=== PATIENT | male | born 1990 | race Two or more races ===

== ENCOUNTER 2020-06-20 19:58 | Emergency (ER) | payer OTHER ==
[~2020-06-20] VITALS: Ht 180.3 cm; Wt 124.5 kg
[2020-06-20 20:00] VITALS: BP 153/85
[2020-06-20] MEDS ORDERED: LIDOCAINE-MPF 1%, 5ML ONE (20:20)
[2020-06-20] MEDS ORDERED: LIDOCAINE-MPF 1%, 5ML INFIL ONE (20:30)
--- NOTE | 2020-06-20 20:43 | NUR ---
PT HAD LAC TO LEFT THUMB AT CREASE. LAC SUTURED AND EDGES WELL APPROXIMATED AND NO MORE BLEEDING. DRESSING PLACED AND INTACT. PT TOLERATED WELL.
[2020-06-20] MEDS ORDERED: NEOSPORIN OINT. PKT 1 PACKET ONE (20:52)
--- NOTE | 2020-06-20 21:33 | NUR ---
F/U AND D/C INSTRUCTIONS GIVEN TO PT AND HE V/U. LEFT THUMB DRESSED AND HAS A SPLINT ON IT. CMS INTACT.
== END 2020-06-20 21:37 | disposition home or self-care (01) ==
LOC: ED 20:28
DX: S61.012A Laceration without foreign body of left thumb without damage to nail, initial encounter (principal); X58.XXXA Exposure to other specified factors, initial encounter; Y93.89 Activity, other specified; Y92.89 Other specified places as the place of occurrence of the external cause; Y99.8 Other external cause status
CPT/HCPCS: 12042; 99284

== ENCOUNTER 2020-06-30 13:54 | Emergency (ER) | payer OTHER ==
[~2020-06-30] VITALS: Ht 180.3 cm; Wt 120.4 kg
[2020-06-30 13:59] VITALS: BP 156/106
== END 2020-06-30 14:33 | disposition home or self-care (01) ==
LOC: ED 14:20
DX: S61.012D Laceration without foreign body of left thumb without damage to nail, subsequent encounter (principal); X58.XXXD Exposure to other specified factors, subsequent encounter
CPT/HCPCS: 99281

== ENCOUNTER 2020-08-12 18:13 | Emergency (ER) | payer OTHER ==
[~2020-08-12] VITALS: Ht 180.3 cm; Wt 124.1 kg
[2020-08-12 18:21] VITALS: BP 156/103
[2020-08-12] MEDS ORDERED: LIDOCAINE-MPF 1%, 5ML INFIL ONE (18:30)
[2020-08-12] MEDS ORDERED: DIPH,PERTUSS(ACELL),TET VAC/PF 0.5 ML IM-VACC ONE (18:30)
--- NOTE | 2020-08-12 20:56 | NUR ---
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 Patient not in lobby at this time.
--- NOTE | 2020-08-12 21:16 | NUR ---
[employer]: called for patient. Pt not in lobby at this time for 2nd attempt.
--- NOTE | 2020-08-12 21:45 | NUR ---
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 Pt not in lobby for 3rd attempt.
== END 2020-08-12 21:49 | disposition left against medical advice (07) ==
LOC: ED 18:30
DX: S61.012A Laceration without foreign body of left thumb without damage to nail, initial encounter (principal); W26.0XXA Contact with knife, initial encounter; Y93.89 Activity, other specified; Y92.89 Other specified places as the place of occurrence of the external cause; Y99.8 Other external cause status
CPT/HCPCS: 99281

== ENCOUNTER 2020-08-13 09:19 | Emergency (ER) | payer OTHER ==
[~2020-08-13] VITALS: Ht 180.3 cm; Wt 125.1 kg
[2020-08-13 09:32] VITALS: BP 163/117
[2020-08-13] MEDS ORDERED: DIPH,PERTUSS(ACELL),TET VAC/PF 0.5 ML IM-VACC ONE ×2 (10:00→12:07)
--- NOTE | 2020-08-13 10:49 | NUR ---
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
[2020-08-13] MEDS ORDERED: LIDOCAINE-MPF 1%, 5ML ONE (11:25)
[2020-08-13] MEDS ORDERED: NEOSPORIN OINT. PKT 1 PACKET ONE (11:32)
[2020-08-13] MEDS ORDERED: LIDOCAINE 1%, 10ML INFIL ONE (12:00)
== END 2020-08-13 12:24 | disposition home or self-care (01) ==
LOC: ED 11:54
DX: S61.012A Laceration without foreign body of left thumb without damage to nail, initial encounter (principal); W26.0XXA Contact with knife, initial encounter; Y93.89 Activity, other specified; Y92.69 Other specified industrial and construction area as the place of occurrence of the external cause; Y99.0 Civilian activity done for income or pay
CPT/HCPCS: 12041; 90471; 90715; 99284; J3490

== ENCOUNTER 2020-10-08 08:17 | Emergency (ER) | payer SELFPAY ==
[~2020-10-08] VITALS: Ht 180.3 cm; Wt 117.0 kg
--- NOTE | 2020-10-08 09:04 | NUR ---
PT IN GOWN IN [facility] WITH ERP AT BS. PT ATTACHED TO ALL VS MONITORS. VSS. PT EDUCATED ON ER PROCESS AND VERBALIZES UNDERSTANDING. PT HAS CALL LIGHT WITHIN REACH; AWAITING ORDERS AT THIS TIME.
[2020-10-08 09:20] LABS: MICROSCOPIC NOT IND
[2020-10-08 09:21] LABS: BASOPHILS % (AUTO) 1 % (0-1); EOSINOPHILS % (AUTO) 1 % (1-7); LYMPHOCYTES % (AUTO) 15 % (22-44); MEAN CORPUSCULAR HEMOGLOBIN 31.4 pg (27.5-34.5); MEAN CORPUSCULAR HGB CONC 34.9 g/dL (33.2-36.2); MEAN PLATELET VOLUME 7.6 fL (7.4-10.4); MONOCYTES % (AUTO) 7 % (2-9); NEUTROPHILS % (AUTO) 76 % (42-75); PLATELET COUNT 330 x10^3/uL (130-400); RED BLOOD COUNT 4.96 x10^6/uL (4.38-5.82); RED CELL DISTRIBUTION WIDTH 13.3 % (9.4-14.8)
[2020-10-08 09:33] LABS: ALBUMIN 3.3 g/dL (3.4-5.0); ANION GAP 6 mmol/L (5-15); CALCIUM 8.9 mg/dL (8.5-10.1); CHLORIDE 107 mmol/L (98-107); CREATININE 0.89 mg/dL (0.7-1.3)
[2020-10-08 09:46] LABS: ALANINE AMINOTRANSFERASE 29 U/L (12-78)
[2020-10-08 09:47] LABS: TOTAL PROTEIN 7.6 g/dL (6.4-8.2)
[2020-10-08 09:48] LABS: ALKALINE PHOSPHATASE 69 U/L (45-117)
--- NOTE | 2020-10-08 11:23 | NUR ---
PT TO CT VIA DEXTER AT THIS TIME. PT FAMILY AT BS.
[2020-10-08] MEDS ORDERED: OMNIPAQUE 350 MG/ML, 100ML BOTTLE ONE (12:14)
[2020-10-08] MEDS ORDERED: METRONIDAZOLE PMX 500MG/100ML 100 ML ONE (12:29)
[2020-10-08] MEDS ORDERED: METRONIDAZOLE PMX 500MG/100ML 100 ML IV ONE (12:30)
[2020-10-08] MEDS ORDERED: CEFOTETAN PMX 1GM/50ML 50 ML IVPB ONE (12:30)
--- NOTE | 2020-10-08 14:06 | NUR ---
pt medicated per apr. pt vss and updated per emr.
[2020-10-08 14:42] VITALS: BP 131/89
--- NOTE | 2020-10-08 14:42 | NUR ---
pt d/c with d/c summary and scripts. pt provided work note per request. pt ambulates to registration desk with steady gait for d/c home and denies any other needs pertaining to this visit. pt vss prior to pt d/c. pt piv d/c with tip intact.
== END 2020-10-08 14:52 | disposition home or self-care (01) ==
LOC: ED 14:03
DX: K57.92 Diverticulitis of intestine, part unspecified, without perforation or abscess without bleeding (principal); K62.5 Hemorrhage of anus and rectum
CPT/HCPCS: 36415; 74177; 80053; 81003; 85025; 96365; 96366; 96375; 99285; Q9967